=== PATIENT | male | born 1980 | race Caucasian/White ===

== ENCOUNTER 2021-01-10 15:02 | Inpatient (IN) | payer OTHER ==
[~2021-01-10] VITALS: Ht 182.9 cm; Wt 108.9 kg
[2021-01-15] MEDS ORDERED: PROMETHAZINE-D473 M1 (10:53)
[2021-01-16] MEDS ORDERED: MEDROLPACK PO (16:10)
[2021-01-16] MEDS ORDERED: ASA325 M1 PO (16:11)
[2021-01-16] MEDS ORDERED: VENTOLIN HFA18 GM IH (16:12)
[2021-01-16] MEDS ORDERED: PEPCID AC20 MG PO (16:25)
[2021-01-16] MEDS ORDERED: INTESTINEX680 M1 PO (16:25)
== END 2021-01-16 17:49 | disposition home or self-care (01) | DRG 177 ==
LOC: ER 15:02 → SEC-K 01-11 01:05 → MEDJ 01-11 01:05
PROVIDERS: ADMIT Internal Medicine; ATTEND Internal Medicine
PROC: 4A033R1 Measurement of Arterial Saturation, Peripheral, Percutaneous Approach (ICD-10-PCS; principal; 2021-01-11)
PROC: XW033E5 Introduction of Remdesivir Anti-infective into Peripheral Vein, Percutaneous Approach, New Technology Group 5 (ICD-10-PCS; 2021-01-11)
PROC: 8E0ZXY6 Isolation (ICD-10-PCS; 2021-01-11)
PROC: 3E0F7SF Introduction of Other Gas into Respiratory Tract, Via Natural or Artificial Opening (ICD-10-PCS; 2021-01-11)
DX: U07.1 COVID-19 (principal); J12.82 Pneumonia due to coronavirus disease 2019; R09.02 Hypoxemia; Z20.822 Contact with and (suspected) exposure to COVID-19